=== PATIENT | male | born 1980 | race Two or more races ===

== ENCOUNTER → 2019-07-19 | Outpatient (CLI) | payer BC ==
[2014-12-15 20:31] VITALS: BP 183/95
[~2019-07-19] MED LIST: ONDA8TAB9 PO
--- NOTE | 2019-07-19 10:24 | RAD ---
Left Lower Extremity Venous Doppler Ultrasound History: Pain and swelling Comparison: None Procedure: Color flow, duplex, spectral analysis and 2D images are obtained with and without compression in the area of the common femoral vein, superficial femoral vein - femoral vein junction, main femoral vein (superficial femoral vein) and popliteal vein. Veins of the proximal calf are also imaged. Findings: There is extensive occlusive thrombus from the common femoral vein to the procedure to the. The study is somewhat limited due to large body habitus. Impression: Extensive deep venous thrombosis left lower extremity. End impression These results were called to GIOVANNI WIGGINS and verified by read back at the time of dictation. FOR INTERNAL CODING PURPOSES Critical result: Findings discussed with GREY WIGGINS at 07/19/2019 10:16 AM. RESULT CODE: (C) Electronically signed by: Kennedy Bledsoe III, MD (07/19/2019 10:21 AM) [id number]
== END ==
LOC: US 09:38
PROVIDERS: ATTEND Physician Assistant
DX: I82.402 Acute embolism and thrombosis of unspecified deep veins of left lower extremity (principal); M79.89 Other specified soft tissue disorders
CPT/HCPCS: 93971

== ENCOUNTER 2019-10-03 13:58 | Inpatient (IN) | payer BC ==
[~2019-10-03] VITALS: Ht 175.3 cm; Wt 152.3 kg
--- NOTE | 2019-10-03 14:23 | PHYS DOC ---
Past History Past Medical History: DVT, Other Past Surgical History: No Surgical History Alcohol Use: None Drug Use: None Date and Time of Assessment Date: Oct 03, 2019 Time: 14:20 Adult General Chief Complaint Chief Complaint: FEVER HPI HPI Patient is a 39-year-old male who presents for fever. Onset of symptoms was this morning. Patient reportedly woke up feeling fatigued with generalized chills, denies any other symptoms. Patient reports going to work and passing initial temperature screening. Nonetheless, throughout the workday patient reportedly started feeling more fatigue with alternating sweats. Repeat temperature was obtained and greater than 101 prompting his employer to transport patient to our ER for further evaluation. On arrival, patient febrile. Patient continues complain of generalized chills, sweats, malaise, and headache with blurry vision of left eye. Denies any chest pain, shortness of breath, abdominal pain, urinary changes or known COVID-19 exposure. Denies any known sick contact exposure. Patient recently diagnosed with lower extremity DVT approximately 1 month ago and was placed on Xarelto, this was a provoked PE given that patient was on strict home quarantine due to known COVID-19 exposure and had minimal physical activity Review of Systems Review of Systems Fourteen body systems of review of systems have been reviewed. See HPI for pertinent positives and negative responses, other demarco all other systems are negative, non-pertinent or non-contributory Allergies Allergies Allergies Coded Allergies Type Severity Reaction Last Updated Verified acetaminophen Allergy Intermediate hives 12/15/14 Yes hydrocodone Allergy Intermediate hives 12/15/14 Yes Physical Exam Physical Exam Constitutional: Well developed, obese, well nourished, no acute distress, non- toxic appearance. HENT: Normocephalic, atraumatic, bilateral external ears normal, oropharynx moist, no oral exudates, nose normal. Eyes: PERRLA, EOMI, conjunctiva normal, no discharge. Neck: Normal range of motion, no tenderness, supple, no stridor. Cardiovascular:Heart rate tachycardic, sinus rhythm, no murmurs rubs or gallops Lungs & Thorax: Bilateral breath sounds clear to auscultation Abdomen: Bowel sounds normal, soft, no tenderness, no masses, no pulsatile masses. Nonsurgical abdomen, no peritoneal signs Skin: Warm, dry, no rash. Patient's left lower extremity in cath and popliteal region red, erythematous and warm to touch when compared to contralateral lower extremity. Diameter is increased as well but this is consistent with recent di agnosis of lower extremity DVT of left leg Back: No tenderness, no CVA tenderness. Extremities: No cyanosis, no clubbing, ROM in decreased range of motion of left lower extremity due to pain. 2+ pitting edema of left lower extremity compared to contralateral leg, increased diameter of left lower extremity versus right as described above consistent with prior recent history of DVT Neurologic: Alert and oriented X 3, cranial nerves II through XII intact, normal motor & sensory function, no focal deficits noted. Psychologic: Affect normal, judgement normal, mood normal. Stutters with speech Current Patient Data Vital Signs Vital Signs Date Time Temp Pulse Resp B/P (MAP) Pulse Ox O2 Delivery O2 Flow Rate FiO2 10/03/19 15:53 110 19 149/61 (90) 95 10/03/19 15:06 110 23 162/85 (110) 94 10/03/19 14:50 107 35 95 10/03/19 14:16 103.0 118 25 143/110 (121) 95 Room Air EKG EKG EKG ordered and interpreted by myself at 1440 hrs. as sinus tachycardia at 107 bpm, unremarkable intervals, right axis deviation, no acute ischemic findings, no STEMI Radiology/Procedures Radiology/Procedures PROCEDURE: PORTABLE CHEST 1V Single view chest dated 10/03/2019: No comparison available. Clinical Indication: Sepsis. Findings: Single upright portable exam of the chest was performed. Heart and mediastinal contours within normal limits. There is some linear bands of increased density at the left lung base, likely scar or atelectasis. Lungs are otherwise clear. No consolidation or pleural effusion. No pneumothorax. Impression:: No acute radiographic abnormality. Electronically signed by: Artis Garces MD (10/03/2019 2:58 PM) [facility] PROCEDURE: CT HEAD WO CONTRAST CT scan of the head without contrast 10/03/2019 Clinical History: Headache and blurred vision. Technique: Unenhanced, contiguous, 5 mm axial sections were obtained through the head. One or more of the following individualized dose reduction techniques were utilized for this study: 1. Automated exposure control. 2. Adjustment of the mA and/or kV according to patient size. 3. Use of iterative reconstruction technique. Findings: The ventricles and sulci are within normal limits in size and configuration. No acute parenchymal abnormality is seen. No extra-axial fluid collection is noted. No skull fracture is seen. The visualized orbits are within normal limits. Impression: No acute intracranial abnormality is seen. Electronically signed by: Gary Gao MD (10/03/2019 3:23 PM) [id number] Course & Med Decision Making Course & Med Decision Making Patient seen and evaluated on immediate ED arrival, nontoxic appearing but tachycardic and febrile on ED arrival Comprehensive history and physical exam obtained with subsequent labs and imaging studies ordered IV fluid resuscitation and antibiotic administration administered via surviving sepsis campaign protocol ED course reviewed and discussed with patient. Discussed diagnosis of sepsis with likely source being left lower extremity cellulitis. Discussed need for admission for continued medical therapy and IV antibiotics, he was agreeable Also discussed patient's headache and blurry vision which resolved with Tylenol administration on arrival. Discussed this may be an acute presentation of a more serious pathology, this will need to be monitored further Also discussed patient's recently diagnosed left lower extremity DVT. Patient placed on Xarelto 1 month ago; however, his weight exceeds studied doses which is of concern Ultimately, hospitalist, Dr. See, was called and case discussed, he was agreeable to admission for further medical management at [facility] All questions and concerns patient had prior to transport were addressed Dragon Disclaimer Dragon Disclaimer This electronic medical record was generated, in whole or in part, using a voice recognition dictation system. Departure Departure: Impression: Primary Impression: Sepsis Additional Impressions: Cellulitis and abscess of left leg History of DVT (deep vein thrombosis) On continuous oral anticoagulation Disposition: ADMITTED INPATIENT Admitting Physician: Libby See Condition: STABLE Referrals: GREY WIGGINS (PCP) Justification of Admission: Justification of Admission: Justification of Admission Dx: Yes Cellulitis: Cellulitis Problem Qualifiers CARLINE BRUNER DO Oct 03, 2019 14:23
[2019-10-03] MEDS ORDERED: IBUPROFEN 600 MG TABLET. PO ONE (14:30)
[2019-10-03] MEDS ORDERED: 0.9 % SODIUM CHLORIDE 10 ML DISP.SYRIN. IV PRN (14:30)
[2019-10-03 14:36] LABS: BASO # 0.2 x10^3/uL (0.0-0.2); BASO % 1 % (0-3); EOS % 0 % (0-3); LYMPH # 0.8 x10^3/uL (1.0-4.8); LYMPH % 4 % (24-48); MEAN CORPUSCULAR HEMOGLOBIN 26 pg (25-35); MEAN CORPUSCULAR HGB CONC 32 g/dL (31-37); MEAN CORPUSCULAR VOLUME 81 fL (79-100); MONO # 0.7 x10^3/uL (0.0-1.1); MONO % 3 % (0-9); NEUT # 19.2 x10^3uL (1.8-7.7); NEUT % 92 % (31-73); PLATELET COUNT 254 x10^3/uL (140-400); RED CELL DISTRIBUTION WIDTH 17.2 % (11.5-14.5); WHITE BLOOD COUNT 20.9 x10^3/uL (4.0-11.0)
[2019-10-03] MEDS ORDERED: ACETAMINOPHEN 500 MG TABLET PO ONE (14:45)
[2019-10-03 14:50] LABS: CALCIUM 8.8 mg/dL (8.5-10.1); CREATININE 1.1 mg/dL (0.7-1.3); GFR 75.3; POTASSIUM 4.3 mmol/L (3.5-5.1)
[2019-10-03 14:55] LABS: TOTAL BILIRUBIN 0.6 mg/dL (0.2-1.0); TOTAL PROTEIN 8.1 g/dL (6.4-8.2)
--- NOTE | 2019-10-03 15:01 | RAD ---
Single view chest dated 10/03/2019: No comparison available. Clinical Indication: Sepsis. Findings: Single upright portable exam of the chest was performed. Heart and mediastinal contours within normal limits. There is some linear bands of increased density at the left lung base, likely scar or atelectasis. Lungs are otherwise clear. No consolidation or pleural effusion. No pneumothorax. Impression:: No acute radiographic abnormality. Electronically signed by: Artis Garces MD (10/03/2019 2:58 PM) [id number]
--- NOTE | 2019-10-03 15:06 | EKG ---
[address] [address] Test Date: 2019-10-03 Test Time: 14:35:57 Pat Name: RENETTA ROBLERO Department: Room: Gender: M Manager English: SPEEDY : 1980 Requested By: CARLINE BRUNER Order Number: [id number] Reading MD: Measurements Intervals [place] Rate: 107 P: 77 NE: 156 QRS: 144 QRSD: 94 T: 44 QT: 310 QTc: 413 Interpretive Statements SINUS TACHYCARDIA ABNORMAL RIGHT AXIS DEVIATION QRS(T) CONTOUR ABNORMALITY CONSIDER ANTEROSEPTAL INFARCT ABNORMAL ECG RI6.02 No previous ECG available for comparison
--- NOTE | 2019-10-03 15:26 | RAD ---
CT scan of the head without contrast 10/03/2019 Clinical History: Headache and blurred vision. Technique: Unenhanced, contiguous, 5 mm axial sections were obtained through the head. One or more of the following individualized dose reduction techniques were utilized for this study: 1. Automated exposure control. 2. Adjustment of the mA and/or kV according to patient size. 3. Use of iterative reconstruction technique. Findings: The ventricles and sulci are within normal limits in size and configuration. No acute parenchymal abnormality is seen. No extra-axial fluid collection is noted. No skull fracture is seen. The visualized orbits are within normal limits. Impression: No acute intracranial abnormality is seen. Electronically signed by: Gary Gao MD (10/03/2019 3:23 PM) [id number]
[2019-10-03] MEDS ORDERED: VANCOMYCIN 2 GM in IV NORMAL SALINE 500ML 500 ML IV ONE (16:00)
[2019-10-03] MEDS ORDERED: NORMAL SALINE IV SCH (16:00)
[2019-10-03 16:45] LABS: % BANDS 4 % (0-9); % LYMPHS 3 % (24-48); % MONOS 5 % (0-10); % SEGS 88 % (35-66); PLT ESTIMATE ADEQUATE (ADEQUATE)
[2019-10-03] MEDS ORDERED: IV NORMAL SALINE 1,000ML 1,000 ML IV SCH (16:58)
[2019-10-03] MEDS ORDERED: ONDANSETRON PF 4 MG/2 ML VIAL. IVP PRN (17:00)
[2019-10-03 17:37] VITALS: BP 162/83
[2019-10-03] MEDS ORDERED: VANCOMYCIN PER PHARMACY MC PRN (17:45)
[2019-10-03] MEDS ORDERED: RIVA20TA2 PO (18:39)
[2019-10-03] MEDS ORDERED: AMLO10TA8 PO (18:39)
[2019-10-03] MEDS ORDERED: IV NORMAL SALINE 1,000ML 1,000 ML IV ONE (18:45)
[2019-10-03] MEDS: ACETAMINOPHEN 325 MG TABLET PO PRN (19:05)
[2019-10-03 19:10] VITALS: BP 163/74
[2019-10-03] MEDS ORDERED: ONDANSETRON ODT 4 MG TAB.RAPDIS PO PRN (19:15)
[2019-10-03 23:00] VITALS: BP 158/73
[2019-10-03] MEDS: VANCOMYCIN 1.5 GM in IV NORMAL SALINE 500ML 500 ML IV SCH (23:15)
[2019-10-04 05:30] VITALS: BP 179/69
[2019-10-04] MEDS: ACETAMINOPHEN 325 MG TABLET PO PRN ×3 (05:53→22:57)
[2019-10-04 05:54] LABS: BASO % 0 % (0-3); EOS % 0 % (0-3); HEMATOCRIT 40.3 % (39.0-53.0); HEMOGLOBIN 13.1 g/dL (13.0-17.5); LYMPH # 0.5 x10^3/uL (1.0-4.8); LYMPH % 3 % (24-48); MEAN CORPUSCULAR HEMOGLOBIN 26 pg (25-35); MEAN CORPUSCULAR HGB CONC 33 g/dL (31-37); MEAN CORPUSCULAR VOLUME 81 fL (79-100); MONO # 0.3 x10^3/uL (0.0-1.1); MONO % 1 % (0-9); NEUT # 20.9 x10^3uL (1.8-7.7); NEUT % 96 % (31-73); PLATELET COUNT 207 x10^3/uL (140-400); RED BLOOD COUNT 4.99 x10^6/uL (4.30-5.70); RED CELL DISTRIBUTION WIDTH 17.2 % (11.5-14.5); WHITE BLOOD COUNT 21.8 x10^3/uL (4.0-11.0)
[2019-10-04 05:59] LABS: CALCIUM 7.8 mg/dL (8.5-10.1); CREATININE 1.2 mg/dL (0.7-1.3); GFR 68.1; POTASSIUM 3.7 mmol/L (3.5-5.1)
[2019-10-04] MEDS ORDERED: FUROSEMIDE 100 MG/10 ML VIAL IVP ONE (08:00)
--- NOTE | 2019-10-04 08:39 | HP ---
ADMIT DATE: 10/03/2019 ATTENDING PHYSICIAN: Dr. Henley. CHIEF COMPLAINT: Fever. HISTORY OF PRESENT ILLNESS: The patient is a 39-year-old gentleman who was admitted through the ED with a 1-day history of fever. He woke up feeling fatigued with generalized chills. He denied any cough. Temperature is up to 101 degrees Fahrenheit. He tried to go see his primary care provider, Vini Jackson; however, he could not pass the temperature screen. Therefore, he was sent down to the Emergency Department. He has redness and erythema of the left leg. There is localized cellulitis. He has had a previous DVT of the leg and it is a little bit bigger than usual. The redness and erythema extends all the way up to his knee. He is not diabetic. He has very little insight unfortunately. He is admitted then with new onset of localized cellulitis involving the left lower extremity from the knee down. PAST MEDICAL HISTORY: Significant for essential hypertension. He is morbidly obese. He does not have diabetes, yet. His blood sugars were adequate. He also has essential hypertension. CURRENT MEDICINES: Include amlodipine and Xarelto 20 mg started a couple of months ago. SOCIAL HISTORY: He is a nonsmoker, nondrinker. FAMILY HISTORY: Mom is alive at age 68 in good health. Father is alive at age 72 with hypertension. No surgical history. ALLERGIES: He has allergies or reaction to HYDROCODONE. REVIEW OF SYSTEMS: Significant for the fevers, chills or rigors, localized swelling. He has difficulty with stairs. He denied any exposure to COVID. He has been on quarantine earlier this year. DVT was diagnosed a month ago. No nausea or vomiting. All other systems were reviewed and determined to be negative. PHYSICAL EXAMINATION: GENERAL: When I saw him, this is a pleasant, obese male. INITIAL VITAL SIGNS: Showed a temperature of 100.2 degrees Fahrenheit, blood pressure is 158/73 mmHg, pulse 100 and regular. He is afebrile now. Oxygen saturation 93% on room air. HEENT: Head is without trauma. Pupils are reactive. Sclerae is nonicteric. Oropharynx is clear. NECK: Supple. There are no bruits. LUNGS: Clear to auscultation. CARDIOVASCULAR: Showed distant heart tones. No obvious gallops. Peripheral pulses are palpable and full. ABDOMEN: Soft, obese, protuberant. No organomegaly. Bowel sounds are hypoactive. EXTREMITIES: Show redness and erythema of the left leg with 3+ pitting edema extending from his ankles up to his knees and upper thigh. The erythema has been demarcated yesterday and appears to have improved with receding redness and erythema. He continues to have significant swelling. Distal pulses are weak. SKIN: Warm and dry. NEUROLOGIC: Focally intact. Speech is fluent. No focal deficits. PERTINENT LABORATORY STUDIES: Lactic acid is down from a high of 3.0-1.2. Nonfasting blood sugar 106. Electrolytes showed a sodium of 133 mEq/L, potassium 3.7, creatinine is 1.2 mg/dL. White count is 21,800 with a hemoglobin of 13.1 mg/dL. He had a chest x-ray done yesterday, which showed no intracardiac or thoracic process. A CT of the head was within normal range. ASSESSMENT: 1. A 39-year-old gentleman with cellulitis, left lower extremity. 2. Obesity with probable prediabetes. 3. Essential hypertension. 4. History of recent deep vein thrombosis, on anticoagulation. PLAN: 1. Admit to the inpatient unit. 2. Vancomycin has been started, and will be continued. 3. Serial chemistries. 4. Intermittent diuretic therapy to reduce the amount of excess of third space fluid. 5. Continue home meds. 6. Diet as tolerated. CHRISTO HENLEY MD DR: HUSSEIN/ajith JOB#: [id number] / [id number] VINI Velasquez
[2019-10-04] MEDS: VANCOMYCIN 1.5 GM in IV NORMAL SALINE 500ML 500 ML IV SCH (09:22)
[2019-10-04] MEDS: RIVAROXABAN 10 MG TABLET. PO SCH (09:25)
[2019-10-04 11:24] VITALS: BP 160/81
[2019-10-04] MEDS: amLODIPine BESYLATE 10 MG TABLET PO SCH (12:31)
[2019-10-04 16:03] LABS: VANC TR 9.1 mcg/mL (10.0-20.0)
[2019-10-04 16:19] VITALS: BP 144/76
[2019-10-04] MEDS ORDERED: VANCOMYCIN PER PHARMACY MC PRN (17:00)
[2019-10-04] MEDS: VANCOMYCIN 2 GM in IV NORMAL SALINE 500ML 500 ML IV SCH (17:19)
[2019-10-04 19:05] VITALS: BP 154/71
[2019-10-04 21:58] VITALS: BP 168/83
[2019-10-05] MEDS: VANCOMYCIN 2 GM in IV NORMAL SALINE 500ML 500 ML IV SCH ×3 (00:40→18:31)
[2019-10-05 06:04] VITALS: BP 146/78
[2019-10-05] MEDS: RIVAROXABAN 10 MG TABLET. PO SCH (08:18)
[2019-10-05] MEDS: amLODIPine BESYLATE 10 MG TABLET PO SCH (08:19)
[2019-10-05 08:33] LABS: BASO % 0 % (0-3); EOS % 0 % (0-3); HEMATOCRIT 39.8 % (39.0-53.0); HEMOGLOBIN 12.9 g/dL (13.0-17.5); LYMPH # 0.9 x10^3/uL (1.0-4.8); LYMPH % 5 % (24-48); MEAN CORPUSCULAR HEMOGLOBIN 26 pg (25-35); MEAN CORPUSCULAR HGB CONC 32 g/dL (31-37); MEAN CORPUSCULAR VOLUME 81 fL (79-100); MONO # 0.6 x10^3/uL (0.0-1.1); MONO % 3 % (0-9); NEUT # 15.6 x10^3uL (1.8-7.7); NEUT % 91 % (31-73); PLATELET COUNT 181 x10^3/uL (140-400); WHITE BLOOD COUNT 17.1 x10^3/uL (4.0-11.0)
[2019-10-05 08:42] LABS: CALCIUM 8.2 mg/dL (8.5-10.1); CREATININE 1.1 mg/dL (0.7-1.3); GFR 75.3; POTASSIUM 3.5 mmol/L (3.5-5.1)
[2019-10-05 08:50] LABS: VANC TR 15.5 mcg/mL (10.0-20.0)
[2019-10-05] MEDS ORDERED: FUROSEMIDE 100 MG/10 ML VIAL IVP ONE (10:15)
[2019-10-05] MEDS ORDERED: MAGNESIUM SULFATE 1GM 100 ML IV ONE (10:15)
--- NOTE | 2019-10-05 10:45 | PN ---
DATE: 10/05/2019 ATTENDING PHYSICIAN: Dr. Henley. CHIEF COMPLAINT: Leg swelling. SUBJECTIVE: The patient is doing better. He has decreased pressure and swelling in the left lower extremity. He is eating well, no further elevated fevers. He has had a good diuresis. OBJECTIVE FINDINGS: VITAL SIGNS: Blood pressure today is 146/78, temperature 98.8 degrees Fahrenheit, oxygen saturation 96% on room air, and pulse 82 and regular. HEENT: Head is without trauma. Pupils are reactive. Sclerae nonicteric. Oropharynx clear. NECK: Supple, no bruits. LUNGS: Clear. CARDIOVASCULAR: Regular heart tones. ABDOMEN: Obese, protuberant. EXTREMITIES: Still showed erythema of the left calf. There is some warmness to palpation. The swelling is down significantly. We can see his malleoli in the ankles. The zone of demarcation is receding. LABORATORY DATA: His creatinine is stable at 1.1 mg/dL actually improved, potassium 3.5 mEq. Hemoglobin is 12.9 g/dL, white count is down to 17,100. ASSESSMENT: 1. This 39-year-old gentleman has cellulitis of left lower extremity. 2. Leukocytosis. 3. Secondary edema, improved. 4. Morbid obesity. PLAN: 1. Continue antibiotics as ordered. 2. Another dose of Lasix to decrease the third space fluid. 3. Potassium and magnesium replacement. 4. Tentative discharge plan with oral antibiotics tomorrow. CHRISTO HENLEY MD DR: HUSSEIN/ajith JOB#: [id number] / [id number]
[2019-10-05 10:54] VITALS: BP 132/77
[2019-10-05] MEDS: ACETAMINOPHEN 325 MG TABLET PO PRN ×2 (11:17→20:56)
[2019-10-05 14:34] VITALS: BP 143/83
[2019-10-05 20:00] VITALS: BP 134/80
[2019-10-05 23:20] VITALS: BP 145/81
[2019-10-06] MEDS: VANCOMYCIN 2 GM in IV NORMAL SALINE 500ML 500 ML IV SCH ×3 (01:18→18:34)
[2019-10-06 05:59] VITALS: BP 148/77
[2019-10-06 06:01] LABS: GFR 84.1; POTASSIUM 3.2 mmol/L (3.5-5.1)
[2019-10-06] MEDS: RIVAROXABAN 10 MG TABLET. PO SCH (08:12)
[2019-10-06] MEDS: amLODIPine BESYLATE 10 MG TABLET PO SCH (08:13)
[2019-10-06] MEDS ORDERED: FUROSEMIDE 100 MG/10 ML VIAL IVP ONE (09:30)
[2019-10-06] MEDS ORDERED: oxyCODONE IR 5 MG TABLET PO PRN (09:30)
[2019-10-06] MEDS: traMADol 50 MG TABLET PO PRN (09:59)
[2019-10-06 10:46] VITALS: BP 145/80
--- NOTE | 2019-10-06 11:10 | PN ---
DATE: 10/06/2019 ATTENDING PHYSICIAN: Dr. Henley. SUBJECTIVE: Leg is still swollen. He is having some low-grade temperatures, but he is feeling better overall clinically. OBJECTIVE FINDINGS: VITAL SIGNS: T-max was 102.3 degrees yesterday. Heart rate 90. Today, temperature is 99.8 degrees Fahrenheit. Blood pressure 148/77. Oxygen saturation 91% on room air. HEENT: Head is without trauma. Pupils are reactive. Sclerae nonicteric. Oropharynx clear. NECK: Supple, no bruits. LUNGS: Clear to auscultation. CARDIOVASCULAR: Showed regular heart tones. No gallops. ABDOMEN: Obese, protuberant. No organomegaly. Bowel sounds are hypoactive. EXTREMITIES: Still shows tightness extending up to his left thigh. The patient has a previous history of DVTs. I have repeated ultrasound. The redness of the skin and erythema is improved. ASSESSMENT: 1. A 39-year-old gentleman with cellulitis of the left leg. 2. Stasis dermatitis. 3. History of deep venous thrombosis of the left leg, currently on Xarelto. 4. Postphlebitic syndrome. 5. Secondary edema due to excess intake of fluids. 6. Morbid obesity. PLAN: 1. Continue vancomycin as ordered. 2. Lasix to decrease the amount of third space fluid. 3. He will need fluid restriction as he has little insight into limitation of fluid. 4. Potassium and magnesium replacement. 5. Followup ultrasound of the left lower extremity to check venous circulation. 6. Continue Xarelto as ordered. CHRISTO HENLEY MD DR: HUSSEIN/ajith JOB#: [id number] / [id number]
--- NOTE | 2019-10-06 13:21 | RAD ---
Left lower extremity venous doppler ultrasound History: History of DVT and 10/19/2019, redness and swelling Comparison: July 19, 2019 Findings: Multiple grayscale, color, and duplex spectral analysis sonographic images were acquired of the left lower extremity veins to evaluate for the presence of DVT. Exam is limited due to patient's body habitus as well as soft tissue edema, limited evaluation for residual nonocclusive thrombus There is normal color flow of the visualized vessels, also normal compressibility and phasicity. Previously there was extensive thrombus present. Impression: 1. No occlusive thrombus is identified, limited evaluation of the vessels as stated. Electronically signed by: Erich Basilio MD (10/06/2019 1:18 PM) [id number]
[2019-10-06 15:15] VITALS: BP 133/84
[2019-10-06 19:53] VITALS: BP 144/83
[2019-10-06 23:16] VITALS: BP 145/84
[2019-10-07] MEDS: VANCOMYCIN 2 GM in IV NORMAL SALINE 500ML 500 ML IV SCH ×3 (00:50→16:25)
[2019-10-07] MEDS: ACETAMINOPHEN 325 MG TABLET PO PRN ×2 (00:50→20:24)
[2019-10-07 06:14] VITALS: BP 138/85
[2019-10-07] MEDS: amLODIPine BESYLATE 10 MG TABLET PO SCH (09:05)
[2019-10-07] MEDS: RIVAROXABAN 10 MG TABLET. PO SCH (09:06)
[2019-10-07] MEDS ORDERED: MAGNESIUM SULFATE 1GM 100 ML IV ONE (09:40)
[2019-10-07] MEDS ORDERED: FUROSEMIDE 100 MG/10 ML VIAL IVP ONE (09:55)
[2019-10-07] MEDS: POTASSIUM CHLORIDE 20 MEQ TABLET.ER. PO SCH ×2 (09:57→20:24)
[2019-10-07 11:12] VITALS: BP 155/78
--- NOTE | 2019-10-07 12:05 | PN ---
DATE: 10/07/2019 ATTENDING PHYSICIAN: Dr. Henley. SUBJECTIVE: Feeling better. Swelling of the left leg is down. He has responded well to diuresis. Followup ultrasound showed no clots. The swelling is due to a postphlebitic syndrome. OBJECTIVE FINDINGS: VITAL SIGNS: He is afebrile today. T-max last night was 100.2 degrees Fahrenheit, blood pressure is 138/85 mmHg, oxygen saturation 95% on room air. HEENT: Head is without trauma. Pupils are reactive. Sclerae nonicteric. Oropharynx clear. NECK: Supple, no bruits. LUNGS: Clear. CARDIOVASCULAR: Showed regular heart tones. ABDOMEN: Obese, protuberant. No guarding or rebound tenderness. EXTREMITIES: Still showed tightness in the left thigh, but it is starting to become less tight. He has redness that is receding. There are no abscess or masses. The redness of the skin and erythema has improved and faded. LABORATORY DATA: Potassium level is 3.2 mEq per liter. Creatinine is 1.0 and actually better than 2 days ago. ASSESSMENT: 1. A 39-year-old gentleman with cellulitis of the left leg most likely Staphylococcus. 2. Stasis dermatitis. 3. History of deep vein thrombosis of the left leg since 06/2019, currently on Xarelto. He has a postphlebitic syndrome. 4. Secondary edema due to excess intake of fluids. 5. Morbid obesity. 6. Hypokalemia due to diuretics. PLAN: 1. Continue vancomycin per pharmacy, dose is up to 2 grams 3 times a day. 3. Lasix to decrease third space fluid. 4. Fluid restriction. 5. Potassium and magnesium replacement. 6. Continue Xarelto as ordered. 7. Tentative discharge plans for tomorrow. At this time, he cannot afford the extensive oral Staph coverage. I will send him home with oral Bactrim and doxycycline. CHRSITO HENLEY MD DR: HUSSEIN/ajith JOB#: [id number] / [id number]
[2019-10-07 14:52] VITALS: BP 149/84
[2019-10-07 19:45] VITALS: BP 143/79
[2019-10-07] MEDS: traMADol 50 MG TABLET PO PRN (20:25)
[2019-10-07] MEDS: LACTOBACILLUS RHAMNOSUS GG 1 CAPSULE. PO SCH (20:25)
[2019-10-08] MEDS: VANCOMYCIN 2 GM in IV NORMAL SALINE 500ML 500 ML IV SCH ×2 (00:23→08:05)
[2019-10-08 00:29] VITALS: BP 155/81
[2019-10-08 06:23] VITALS: BP 155/78
[2019-10-08 08:06] VITALS: BP 155/78
[2019-10-08] MEDS: LACTOBACILLUS RHAMNOSUS GG 1 CAPSULE. PO SCH (08:06)
[2019-10-08] MEDS: RIVAROXABAN 10 MG TABLET. PO SCH (08:06)
[2019-10-08] MEDS: amLODIPine BESYLATE 10 MG TABLET PO SCH (08:06)
[2019-10-08] MEDS: POTASSIUM CHLORIDE 20 MEQ TABLET.ER. PO SCH (08:06)
--- NOTE | 2019-10-08 12:49 | DS ---
DATE OF DISCHARGE: 10/08/2019 ATTENDING PHYSICIAN: Dr. Henley FINAL DISCHARGE DIAGNOSES: 1. Cellulitis of the left lower extremity. 2. Stasis dermatitis. 3. Recent diagnosis of deep vein thrombosis, left leg. 4. Morbid obesity. 5. Fever. 6. Essential hypertension. HISTORY AND PHYSICAL: The patient is a 39-year-old gentleman admitted to the ED with redness, erythema and significant swelling of the left lower extremity. In June of this year, he had a diagnosis of deep vein thrombosis. He was first prescribed Xarelto. He is still taking the medicine right now. There is a component of postphlebitic syndrome. He also had a workup which showed no recurrent clots and the veins were patent. He was admitted for cellulitis related to stasis dermatitis. PHYSICAL EXAMINATION: Please see the dictated note. PERTINENT LABORATORY AND X-RAY STUDIES: Blood cultures showed no growth after 4 days. Hemoglobin was 12.9 g/dL; white count initially 20,900, it came down to 17,100. Chemistry panel: Sodium was adequate at 133 mEq, potassium 3.5 and 3.2 mEq. This was replaced and we followed up as an outpatient. His creatinine is stable at 1.0 mg/dL, nonfasting blood sugar 126. A followup ultrasound of the lower extremities showed that no occlusive thrombus was identified. He also had a CT of the head, which showed no intracranial abnormality. COURSE IN THE HOSPITAL: The patient was admitted. He was treated with 5 full days of intravenous vancomycin along with diuretics, potassium and magnesium replacement. He did well. Swelling came down. The pain was controlled. He was able to bear weight. He will continue Xarelto. A followup ultrasound showed no evidence of veno-occlusive disease. On the fifth hospital day, his vital signs were stable. Blood pressure was 150/78, pulse regular, temperature 97.9 degrees Fahrenheit, oxygen saturation 92%. At this time, he wanted to go home, which I felt was reasonable. I recommended continuation of Lasix 80 mg p.o. daily in the morning, K-Dur 20 mEq p.o. daily, Bactrim-DS 1 p.o. b.i.d. for 10 more days, doxycycline 100 mg p.o. b.i.d. for 10 more days and stop. I suggested a followup visit with Vini Jackson in the office to recheck chemistries in 10 days. He will continue Xarelto 20 mg p.o. daily and amlodipine 10 mg daily. The patient has been discharged from our hospital in stable condition with explicit instructions and followup care. Work release through 10/11/2019. Followup visit with GIOVANNI Gamino. CHRISTO HENLEY MD DR: HUSSEIN/ajith JOB#: [id number] / [id number] VINI Velasquez
== END 2019-10-08 10:30 | disposition home or self-care (01) | DRG 300 ==
LOC: ER 13:58 → 1 SOUTH 16:20 → ER 16:43
PROVIDERS: ADMIT Internal Medicine; ATTEND Internal Medicine
DX: I87.002 Postthrombotic syndrome without complications of left lower extremity (principal); L03.116 Cellulitis of left lower limb; Z68.42 Body mass index [BMI] 45.0-49.9, adult; L02.416 Cutaneous abscess of left lower limb; E66.01 Morbid (severe) obesity due to excess calories; E87.6 Hypokalemia; I10 Essential (primary) hypertension; R73.03 Prediabetes; T50.2X5A Adverse effect of carbonic-anhydrase inhibitors, benzothiadiazides and other diuretics, initial encounter; Z79.01 Long term (current) use of anticoagulants; Z82.49 Family history of ischemic heart disease and other diseases of the circulatory system; Z86.718 Personal history of other venous thrombosis and embolism; Z88.8 Allergy status to other drugs, medicaments and biological substances
CPT/HCPCS: 36415; 70450; 71045; 80048; 80053; 80202; 82550; 83605; 84484; 85007; 85025; 87040; 93005; 93971; 96365; J2405; J3010; J3370; J3475; J7040; 99285-25; J7030

== ENCOUNTER → 2020-04-03 | Outpatient (CLI) | payer BC ==
[~2020-04-03] MED LIST changes: +AMLO-187 PO; +RIVA20TA2 PO
--- NOTE | 2020-04-03 09:20 | RAD ---
Left Leg Venous Doppler Ultrasound, 04/03/2020 Indication: Left leg pain and swelling with redness Comparison: None available Procedure: Real-time grayscale, color flow color duplex Doppler and spectral analysis are obtained w ith and without compression in the area of the common femoral vein, superficial femoral vein - femora l vein junction, main femoral vein (superficial femoral vein) and popliteal vein. Veins of the proxim al calf are also imaged. Findings: Study somewhat limited due to swelling. There is normal duplex flow, color flow and compressibility o f all visualized vein segments. No evidence of deep venous thrombus is present. Impression: Negative venous Doppler of left lower extremity Electronically signed by: Janay Rasmussen MD (04/03/2020 9:18 AM) [id number]
== END ==
LOC: PMG 08:36
PROVIDERS: ATTEND Physician Assistant
DX: I82.402 Acute embolism and thrombosis of unspecified deep veins of left lower extremity (principal); M79.89 Other specified soft tissue disorders
CPT/HCPCS: 93971

== ENCOUNTER → 2021-01-09 | Outpatient (CLI) | payer BC ==
--- NOTE | 2021-01-09 14:47 | RAD ---
LEFT LEG VENOUS DOPPLER STUDY: Clinical indications: Left leg swelling and pain. History DVT. COMPARISON: April 03, 2020. This study was negative. Findings: Duplex sonography (including barone scale evaluation and color flow and waveform spectral adi lysis) of the proximal aspect of the greater saphenous vein and the proximal aspect of the profunda f emoral vein and the entire length of the common femoral and superficial femoral and popliteal veins a nd the tibioperoneal trunk and the proximal aspect of the posterior tibial and peroneal veins of the left leg was performed. There is occlusive thrombosis within the common femoral vein and proximal gre ater saphenous vein and partial near occlusive thrombosis within the proximal superficial femoral vei n. This is new. The popliteal vein and posterior tibial and peroneal veins are compressible and paten t. Impression: DVT of the left common femoral vein and superficial femoral vein and proximal greater sap henous vein. Electronically signed by: Channing Rajput MD (01/09/2021 2:45 PM) [id number]
== END ==
LOC: US 13:53
PROVIDERS: ATTEND Physician Assistant
DX: I82.412 Acute embolism and thrombosis of left femoral vein (principal); I83.90 Asymptomatic varicose veins of unspecified lower extremity
CPT/HCPCS: 93971